=== PATIENT | male | born 1995 | race African-American/Black ===

== ENCOUNTER 2017-06-25 18:58 | Emergency (ER) | payer SELFPAY ==
[2017-06-25 20:13] LABS: BILIRUBIN,URINE NEGATIVE (NEG); CLARITY,URINE CLEAR; COLOR,URINE YELLOW; GLUCOSE,URINE NEGATIVE (NEG); NITRITE,URINE NEGATIVE (NEG); PH,URINE 6.5; PROTEIN,URINE 30 mg/dL (NEG-TRACE); UROBILINOGEN,URINE 0.2 mg/dL (0.2 mg/dL)
[2017-06-25 20:18] LABS: BACTERIA,URINE 0 /HPF (0-FEW); RBC,URINE OCC /HPF (0-2); SQUAMOUS EPITHELIAL CELL,UR OCC /LPF
[2017-06-25] MEDS: AZITHROMYCIN 250 MG TABLET. PO (20:46)
[2017-06-25] MEDS: metroNIDAZOLE 500 MG TABLET PO (20:47)
[2017-06-25] MEDS: cefTRIAXone IM 250 MG VIAL IM (20:48)
== END 2017-06-25 21:00 | disposition home or self-care (01) ==
LOC: ER 18:58
DX: Z11.3 Encounter for screening for infections with a predominantly sexual mode of transmission (principal); R36.9 Urethral discharge, unspecified; F12.10 Cannabis abuse, uncomplicated
CPT/HCPCS: 81001; 87491; 87591; 96372; 99284-25; J0696; Q0144

== ENCOUNTER 2018-01-14 16:12 | Emergency (ER) | payer SELFPAY ==
[2018-01-14] MEDS ORDERED: FLUORESCEIN OPHTH TEST STRIP. (16:40)
[2018-01-14] MEDS ORDERED: TETRACAINE 0.5% OPHTH SOLUTION 4ML BOTTLE. (16:40)
[2018-01-14] MEDS: TETRACAINE 0.5% OPHTH SOLUTION 4ML BOTTLE. OS (16:44)
[2018-01-14] MEDS: FLUORESCEIN OPHTH TEST STRIP. OS (16:45)
[2018-01-14] MEDS: ERYTHROMYCIN 0.5% OPHTH OINTMENT 1GM TUBE. OS (17:25)
== END 2018-01-14 17:33 | disposition home or self-care (01) ==
LOC: ER 16:12
DX: H57.8 Other specified disorders of eye and adnexa (principal)
CPT/HCPCS: 99284